=== PATIENT | female | born 1980 | race Caucasian/White ===

== ENCOUNTER 2017-07-30 11:27 | Emergency (ER) | payer OTHER ==
[~2017-07-30] VITALS: Wt 49.9 kg
[2017-07-30] MEDS ORDERED: PREDNISONE20 M1 PO (11:44)
== END 2017-07-30 11:54 | disposition home or self-care (01) ==
LOC: ED 11:27
DX: L23.7 Allergic contact dermatitis due to plants, except food (principal); Z88.2 Allergy status to sulfonamides; Z88.6 Allergy status to analgesic agent; Z88.8 Allergy status to other drugs, medicaments and biological substances

== ENCOUNTER → 2017-11-30 | Outpatient (CLI) | payer OTHER ==
[~2017-11-30] MED LIST: PREDNISONE20 M1 PO
== END | disposition home or self-care (01) ==
LOC: RAD 11:15
DX: M25.512 Pain in left shoulder (principal); M47.897 Other spondylosis, lumbosacral region

== ENCOUNTER → 2018-02-23 | Outpatient (CLI) | payer OTHER | END | disposition home or self-care (01) | LOC: RAD 14:35 | DX: M41.84 Other forms of scoliosis, thoracic region (principal); M41.82 Other forms of scoliosis, cervical region; M43.8X2 Other specified deforming dorsopathies, cervical region; M47.819 Spondylosis without myelopathy or radiculopathy, site unspecified ==

== ENCOUNTER → 2018-03-07 | Outpatient (CLI) | payer OTHER | END | disposition home or self-care (01) | LOC: CARD 02:42 | DX: I95.9 Hypotension, unspecified (principal) ==

== ENCOUNTER 2018-07-10 19:10 | Emergency (ER) | payer OTHER ==
[~2018-07-10] VITALS: Ht 152.4 cm; Wt 47.2 kg
[2018-07-10 20:11] LABS: BASO # 0.1 10*3/uL (0.0-0.1); BASO % 0.8 % (0.0-1.0); EOS # 0.2 10*3/uL (0.0-0.4); EOS % 2.3 % (1.0-4.0); HEMOGLOBIN 13.8 g/dl (12.0-16.0); LYMPH # 2.3 10*3/uL (1.3-4.4); LYMPH % 31.5 % (27.0-41.0); MEAN CELL VOLUME 90.3 fl (81.0-99.0); MEAN CORPUSCULAR HGB CONC 32.1 g/dl (33.0-37.0); MEAN PLATELET VOLUME 9.7 fl (9.6-12.3); MONO # 0.4 10*3/uL (0.1-1.0); MONO % 5.7 % (3.0-9.0); NEUT # 4.4 10*3/uL (2.3-7.9); NEUT % 59.4 % (47.0-73.0); PLATELET COUNT AUTOMATED 260 10*3/uL (130-400); RED BLOOD COUNT 4.76 10*6/uL (4.10-5.10); RED CELL DISTRI WIDTH 13.1 % (0-14.5); WHITE BLOOD COUNT 7.4 10*3/uL (4.8-10.8)
[2018-07-10 20:29] LABS: ALBUMIN 4.2 gm/dl (3.1-4.5); ALKALINE PHOSPHATASE 57 U/L (45-117); BUN 14 mg/dl (7-24); CHLORIDE 107 mmol/L (98-107); CREATININE 0.89 mg/dL (0.55-1.02); LIPASE 131 U/L (73-393); POTASSIUM 4.1 mmol/L (3.5-5.1); SGOT/AST 9 IU/L (3-35); SGPT/ALT 13 U/L (12-78); SODIUM 140 mmol/L (136-145)
[2018-07-10 21:33] LABS: BILIRUBIN NEGATIVE (NEGATIVE); BLOOD 1+ (NEGATIVE); CLARITY CLEAR (CLEAR); COLOR YELLOW (YELLOW); GLUCOSE NEGATIVE (NEGATIVE); KETONE NEGATIVE (NEGATIVE); LEUKO ESTERASE NEGATIVE (NEGATIVE); NITRITE NEGATIVE (NEGATIVE); SPECIFIC GRAVITY 1.015 (1.005-1.030); UROBILINOGEN 0.2 E.U./dl (0.2-1.0)
[2018-07-10 21:39] LABS: BACTERIA TRACE; EPITHELIAL CELLS 0-2; WBC 0-2 wbc/hpf (0-5)
== END 2018-07-11 01:03 | disposition home or self-care (01) ==
LOC: ED 19:10
PROVIDERS: Nurse Practitioner Family
DX: R10.32 Left lower quadrant pain (principal); R19.7 Diarrhea, unspecified; R31.9 Hematuria, unspecified; Z88.2 Allergy status to sulfonamides; Z88.6 Allergy status to analgesic agent; Z88.8 Allergy status to other drugs, medicaments and biological substances

== ENCOUNTER → 2018-07-13 | Outpatient (CLI) | payer OTHER | END | disposition home or self-care (01) | LOC: LAB 09:50 → US 10:00 | PROVIDERS: Internal Medicine | DX: M25.50 Pain in unspecified joint (principal); R10.9 Unspecified abdominal pain ==